=== PATIENT | female | born 1935 | race Caucasian/White ===

== ENCOUNTER 2017-06-22 05:54 | Observation (INO) | payer MEDICARE ==
[2017-06-21 09:57] LABS: BASOPHILS % (AUTO) 1.1 % (0.0-5.0); EOSINOPHILS % (AUTO) 5.7 % (0.0-8.0); HEMATOCRIT 36.7 % (36-48); LYMPHOCYTES % (AUTO) 42.6 % (21.0-51.0); MEAN CORPUSCULAR HEMOGLOBIN 33.2 pg (27.0-33.0); MEAN CORPUSCULAR HGB CONC 34.9 g/dL (32.0-36.0); MONOCYTES % (AUTO) 5.4 % (3.0-13.0); NEUTROPHILS % (AUTO) 45.2 % (40.0-77.0); NUCLEATED RED BLOOD CELLS 0.1 % (0.0-0.19); PLATELET COUNT (AUTO) 252 K/uL (130-400); RED BLOOD CELL COUNT(AUTO) 3.86 MIL/uL (4.00-5.50); RED CELL DISTRIBUTION WIDTH 13.6 % (11.0-15.5); WHITE BLOOD COUNT (AUTO) 6.3 K/uL (4.8-10.8)
[2017-06-21 10:06] LABS: CREATININE 1.1 mg/dL (0.5-1.5); POTASSIUM 4.2 mmol/L (3.5-5.1)
[2017-06-21 10:09] VITALS: BP 111/54
[2017-06-21 12:42] LABS: INR 1.03 (0.85-1.15); PARTIAL THROMBOPLASTIN TIME 23.7 SEC (26.3-35.5); PROTHROMBIN TIME 10.8 SEC (9.6-11.6)
[~2017-06-22] VITALS: Ht 167.6 cm; Wt 99.8 kg
[2017-06-22] VITALS (20 sets, daily range): BP systolic 92–148; BP diastolic 42–87
[~2017-06-22 05:54] MED LIST: ASPI-1026 PO; ATOR40TA71 PO; CHOL100040 PO; FISH1CAP50 PO; FURO-151 PO; METF500T6 PO; METO50TA18 PO; OMEP20CA10 PO; POTA20TA12 PO; VITA1CAP85 PO; WARF1TAB46 PO; ZIPR20CA23 PO; calcium PO
[2017-06-22] MEDS ORDERED: CEFAZOLIN 1GM / D5W 50ML 150 ML ONE (07:08)
[2017-06-22] MEDS ORDERED: BUPIVACAINE/PF 0.25% 30ML VIAL IJ ONE (07:08)
[2017-06-22] MEDS ORDERED: LIDOCAINE HCL 1% MDV 50ML VIAL ONE (07:09)
[2017-06-22] MEDS ORDERED: SODIUM CHLORIDE 0.9% 1000ML 1,000 ML IV ONE (07:22)
[2017-06-22] MEDS ORDERED: MEPERIDINE-PF 50 MG/ML SYG ONE ×2 (07:39→08:57)
[2017-06-22] MEDS ORDERED: MIDAZOLAM HCL 1 MG/ML 2ML VIAL ONE ×3 (07:39→08:56)
[2017-06-22] MEDS ORDERED: ISOVUE-300 100 ML VIAL IV ONE (07:58)
[2017-06-22] MEDS ORDERED: DOXY100T2 PO (09:34)
[2017-06-22] MEDS ORDERED: ONDANSETRON HCL 4 MG/2 ML VIAL IV PRN (09:45)
[2017-06-22] MEDS ORDERED: DEXTROSE 50%-WATER 50 ML DISP.SYRIN IV PRN (09:45)
[2017-06-22] MEDS ORDERED: ACETAMINOPHEN-CODEINE 300/30MG TAB PO PRN ×2 (09:45)
[2017-06-22] MEDS: INSULIN HUMULIN R 100 UNIT/ML 3ML SQ SCH ×3 (10:59→21:00)
[2017-06-22] MEDS ORDERED: POTASSIUM CHLORIDE 20 MEQ ERTAB PO PRN (15:30)
[2017-06-22] MEDS ORDERED: POTASSIUM CHLORIDE 10% ELIXIR 20 MEQ/15 ML UDCUP PO PRN (15:30)
[2017-06-22] MEDS ORDERED: LIDOCAINE HCL-MPF 1% 2ML VIAL IVP PRN (15:30)
[2017-06-22] MEDS ORDERED: POTASSIUM CHLORIDE 20MEQ/100ML 100 ML IV PRN (15:30)
[2017-06-22] MEDS ORDERED: INSULIN HUMULIN R 100 UNIT/ML 3ML SQ SCH (16:30)
[2017-06-22] MEDS: CEFAZOLIN SODIUM 1 GM VIAL IVP SCH (17:23)
[2017-06-22] MEDS ORDERED: ALPRAZOLAM 0.25 MG TABLET PO PRN (17:30)
[2017-06-22] MEDS ORDERED: ATORVASTATIN CALCIUM 40 MG TABLET PO SCH (21:00)
[2017-06-22] MEDS ORDERED: POTASSIUM CHLORIDE 20 MEQ ERTAB PO SCH (21:00)
[2017-06-22] MEDS ORDERED: ZIPRASIDONE HCL 20 MG CAPSULE PO SCH (21:00)
[2017-06-22] MEDS ORDERED: VITAMIN B COMPLEX 1 CAPSULE PO SCH (21:00)
[2017-06-22] MEDS ORDERED: ASPIRIN 325 MG TABLET PO SCH (21:00)
[2017-06-23] MEDS: CEFAZOLIN SODIUM 1 GM VIAL IVP SCH (00:21)
[2017-06-23] MEDS ORDERED: LORAZEPAM 2 MG/ML 1 ML VIAL IVP PRN (02:30)
[2017-06-23] MEDS ORDERED: LORAZEPAM 2 MG/ML 1 ML VIAL ONE (02:40)
[2017-06-23 03:14] VITALS: BP 116/53
[2017-06-23 04:14] LABS: HEMATOCRIT 33.2 % (36-48); MEAN CORPUSCULAR HEMOGLOBIN 32.6 pg (27.0-33.0); MEAN CORPUSCULAR HGB CONC 34.4 g/dL (32.0-36.0); MEAN CORPUSCULAR VOLUME 94.7 fL (79-99); PLATELET COUNT (AUTO) 195 K/uL (130-400); RED CELL DISTRIBUTION WIDTH 13.7 % (11.0-15.5); WHITE BLOOD COUNT (AUTO) 9.8 K/uL (4.8-10.8)
[2017-06-23 04:34] LABS: CREATININE 1.2 mg/dL (0.5-1.5); POTASSIUM 4.1 mmol/L (3.5-5.1)
[2017-06-23 04:39] LABS: INR 1.01 (0.85-1.15); PARTIAL THROMBOPLASTIN TIME 23.6 SEC (26.3-35.5); PROTHROMBIN TIME 10.6 SEC (9.6-11.6)
[2017-06-23] MEDS: INSULIN HUMULIN R 100 UNIT/ML 3ML SQ SCH (06:05)
[2017-06-23 08:00] VITALS: BP 128/63
[2017-06-23] MEDS ORDERED: METOPROLOL TARTRATE 50 MG TAB PO SCH (09:00)
[2017-06-23] MEDS ORDERED: FUROSEMIDE 40 MG TABLET PO SCH (09:00)
[2017-06-23] MEDS ORDERED: WARFARIN SODIUM 1 MG TAB PO SCH (09:00)
== END 2017-06-23 09:55 | disposition home or self-care (01) ==
LOC: DAH 05:54 → DAHIP 05:55 → DAH 05:55 → 2DH 14:02
PROVIDERS: ADMIT Internal Medicine Cardiovascular Disease; ATTEND Internal Medicine Cardiovascular Disease
DX: I25.5 Ischemic cardiomyopathy (principal); I13.0 Hypertensive heart and chronic kidney disease with heart failure and stage 1 through stage 4 chronic kidney disease, or unspecified chronic kidney disease; E11.22 Type 2 diabetes mellitus with diabetic chronic kidney disease; N18.3 Chronic kidney disease, stage 3 (moderate); I48.91 Unspecified atrial fibrillation; I50.43 Acute on chronic combined systolic (congestive) and diastolic (congestive) heart failure; G47.33 Obstructive sleep apnea (adult) (pediatric); I25.10 Atherosclerotic heart disease of native coronary artery without angina pectoris; J96.20 Acute and chronic respiratory failure, unspecified whether with hypoxia or hypercapnia; K21.9 Gastro-esophageal reflux disease without esophagitis; E78.5 Hyperlipidemia, unspecified; M10.9 Gout, unspecified; F03.90 Unspecified dementia, unspecified severity, without behavioral disturbance, psychotic disturbance, mood disturbance, and anxiety; F32.9 Major depressive disorder, single episode, unspecified; F41.9 Anxiety disorder, unspecified; Z80.9 Family history of malignant neoplasm, unspecified; Z82.49 Family history of ischemic heart disease and other diseases of the circulatory system; Z83.3 Family history of diabetes mellitus; Z95.1 Presence of aortocoronary bypass graft; Z95.810 Presence of automatic (implantable) cardiac defibrillator; Z79.899 Other long term (current) drug therapy; Z79.01 Long term (current) use of anticoagulants
CPT/HCPCS: 33225; 33264; 36415 ×2; 71045; 80048 ×2; 82948 ×5; 85025; 85027; 85610 ×2; 85730 ×2; 93005 ×3; 96374; 96376; A4218 ×2; A4606; C1769 ×2; C1882; C1894; C1900; G0378 ×28; J0690 ×3; J2060; J2175 ×2; J2250 ×3; J3490 ×2; J7030; Q9967; 33224; 96365; 96375; 99152; 99153

== ENCOUNTER 2017-07-14 13:45 | Emergency (ER) | payer MEDICARE ==
[~2017-07-14 13:45] MED LIST changes: +DOXY100T2 PO
[2017-07-14 14:19] LABS: APPEARANCE,URINE Cloudy (CLEAR); BILIRUBIN,URINE Negative (NEGATIVE); COLOR,URINE Dark Yellow (YELLOW); GLUCOSE, URINE (UA) Negative (NEGATIVE); KETONES,URINE Trace mg/dL (NEGATIVE); LEUKOCYTE ESTERASE ,URINE Small (NEGATIVE); NITRATE,URINE Negative (NEGATIVE); OCCULT BLOOD,URINE Negative (NEGATIVE); PROTEIN,URINE Trace (NEGATIVE)
[2017-07-14 14:28] LABS: BACTERIA,URINE Rare /HPF (None Seen); RBC,URINE 0-1 /HPF (0-1); SQUAMOUS EPITHELIAL CELL,UR Few /LPF (0-2)
[2017-07-14 15:18] LABS: BASOPHILS % (AUTO) 1.1 % (0.0-5.0); EOSINOPHILS % (AUTO) 4.6 % (0.0-8.0); HEMATOCRIT 33.6 % (36-48); LYMPHOCYTES % (AUTO) 31.2 % (21.0-51.0); MEAN CORPUSCULAR HEMOGLOBIN 32.4 pg (27.0-33.0); MEAN CORPUSCULAR HGB CONC 34.6 g/dL (32.0-36.0); MEAN CORPUSCULAR VOLUME 93.5 fL (79-99); MONOCYTES % (AUTO) 5.5 % (3.0-13.0); NEUTROPHILS % (AUTO) 57.6 % (40.0-77.0); NUCLEATED RED BLOOD CELLS 0.1 % (0.0-0.19); PLATELET COUNT (AUTO) 241 K/uL (130-400); WHITE BLOOD COUNT (AUTO) 9.1 K/uL (4.8-10.8)
[2017-07-14 15:30] LABS: CREATININE 1.1 mg/dL (0.5-1.5); POTASSIUM 4.1 mmol/L (3.5-5.1)
[2017-07-14 15:34] LABS: ALBUMIN 3.1 g/dL (3.5-5.0); BILIRUBIN,TOTAL 0.9 mg/dL (0.2-1.0); TOTAL PROTEIN, SERUM 6.5 g/dL (6.0-8.3)
[2017-07-14 15:46] LABS: CREATINE KINASE, TOTAL 59 U/L (21-232); MYOGLOBIN 64 ng/mL (10-92); TROPONIN I < 0.04 ng/mL (0.00-0.06)
[2017-07-14] MEDS ORDERED: SODIUM CHLORIDE 0.9% 1000ML 1,000 ML IV ONE (15:49)
[2017-07-14] MEDS ORDERED: CEFTRIAXONE SODIUM 1 GM ONE (15:50)
== END 2017-07-14 17:27 | disposition home or self-care (01) ==
LOC: EDH 13:45
DX: N39.0 Urinary tract infection, site not specified (principal); I48.91 Unspecified atrial fibrillation; I48.92 Unspecified atrial flutter; E11.9 Type 2 diabetes mellitus without complications; R53.1 Weakness; I25.10 Atherosclerotic heart disease of native coronary artery without angina pectoris; I10 Essential (primary) hypertension; Z86.73 Personal history of transient ischemic attack (TIA), and cerebral infarction without residual deficits; Z95.0 Presence of cardiac pacemaker; Z98.890 Other specified postprocedural states
CPT/HCPCS: 36415; 80053; 81001; 82550; 82553; 83874; 84484; 85025; 87088; 93005; 96361; 96374; 99285; J0696; J7030

== ENCOUNTER → 2017-07-19 | Outpatient (CLI) | payer MEDICARE | END | disposition home or self-care (01) | LOC: RAH 13:37 | PROVIDERS: ATTEND Family Medicine | DX: I69.354 Hemiplegia and hemiparesis following cerebral infarction affecting left non-dominant side (principal); I65.22 Occlusion and stenosis of left carotid artery | CPT/HCPCS: 93880 ==